=== PATIENT | female | born 1960 | race Caucasian/White ===

== ENCOUNTER 2020-12-24 13:33 | Outpatient (CLI) | payer BC ==
[2020-12-24] MEDS ORDERED: Magnevist 469MG/ML 20 ML VIAL ONE (14:49)
--- NOTE | 2020-12-24 15:12 | MRI ---
EXAM: MRI of the pelvis without and with contrast HISTORY: Rectal cancer staging COMPARISON: CT abdomen/pelvis 11/27/2020 TECHNIQUE: Multiplanar multisequence MR images were obtained of the pelvis without and with IV contra st. FINDINGS: There is a mass involving the distal sigmoid colon measuring 2.6 cm in length. Scattered diverticula are seen in the sigmoid colon. Invasion of the mesorectal fat: None ; Distance of mass from the anal verge: 9.1 cm Closest margin to the mesorectal fascia: 2.4 cm Involvement of adjacent organs: None Pelvic lymph nodes: There appears be a small 5 mm lymph node in the fat adjacent to the sigmoid mass. Osseous structures: No marrow signal abnormality Other visualized intrapelvic structures: 8 mm nabothian cyst in the cervix. The endometrial stripe is thickened and contains high T2 signal cystic foci. A 1.3 cm low signal intensity fibroid is seen in the uterine fundus. IMPRESSION: 1. Sigmoid colon cancer as above. 2. Heterogeneous appearance of the endometrium is concerning for either endometrial hyperplasia or an endometrial mass. Recommend colonoscopy with Pap smear and direct visualization by a heavy threader.
== END 2020-12-24 13:34 | disposition home or self-care (01) ==
LOC: MRI 13:33
PROVIDERS: ATTEND Internal Medicine Hematology & Oncology
DX: C20 Malignant neoplasm of rectum (principal)
CPT/HCPCS: 72197; 82565; A9579

== ENCOUNTER 2021-03-10 12:02 | Outpatient (CLI) | payer BC ==
[2021-03-10 16:38] LABS: Hemoglobin 12.4 g/dL (12.0-15.5); Mean Corpuscular HGB CONC 31.5 g/dL (32.0-36.0); Mean Corpuscular Hemoglobin 28.1 pg (27.0-33.0); Mean Corpuscular Volume 89.3 fl (81.6-98.3); Mean Platelet Volume 9.1 fl (7.4-10.4); Platelet Count 498 10x3/uL (150-450); RBC Distribution Width 14.6 % (11.5-14.5); Red Blood Cell (RBC) Count 4.41 10x6/uL (3.90-5.03); White Blood Cell (WBC) Count 6.9 10x3/uL (3.5-10.5)
[2021-03-11 00:54] LABS: SARS-CoV-2 PCR by NAA Not Detected (NotDetected)
== END 2021-03-10 12:03 | disposition home or self-care (01) ==
LOC: LABBT 12:02
PROVIDERS: ATTEND Surgery
DX: Z01.812 Encounter for preprocedural laboratory examination (principal); Z20.822 Contact with and (suspected) exposure to COVID-19; C20 Malignant neoplasm of rectum
CPT/HCPCS: 80053; 82378; 85027; 87635; U0003; U0005

== ENCOUNTER 2021-03-13 10:36 | Day surgery (SDC) | payer BC ==
[2021-03-11 14:27] VITALS: BMI 19.6
[2021-03-13] MEDS ORDERED: Bupivacaine 0.25% HCL 30 ML VIAL ONE (13:04)
[2021-03-13] MEDS ORDERED: Lidocaine 1% w/Epinephrine 1:100K 20 ML VIAL ONE (13:04)
[2021-03-13] MEDS ORDERED: Midazolam HCl 2 mg/2 ml Vial ONE (13:09)
[2021-03-13] MEDS ORDERED: Fentanyl 100 MCG/2 ML VIAL ONE (13:09)
[2021-03-13] MEDS ORDERED: Propofol 500 MG/50 ML VIAL ONE (13:09)
== END 2021-03-13 15:02 | disposition home or self-care (01) ==
LOC: SDC 10:36
PROVIDERS: ATTEND Surgery
PROC: 02HV33Z Insertion of Infusion Device into Superior Vena Cava, Percutaneous Approach (ICD-10-PCS; principal; 2021-03-13)
DX: C20 Malignant neoplasm of rectum (principal); Z79.899 Other long term (current) drug therapy
CPT/HCPCS: 71045; C1788; J0690; J1642; J2250; J2704; J3010; S0020